=== PATIENT | male | born 1985 | race Caucasian/White ===

== ENCOUNTER 2016-07-11 15:23 | Emergency (ER) | payer SELFPAY ==
[~2016-07-11] VITALS: Ht 177.8 cm; Wt 105.0 kg
[2016-07-11 15:43] VITALS: Ht 177.8 cm; Wt 105.0 kg
[2016-07-11] MEDS ORDERED: IBUP-1542 PO (17:58)
[2016-07-11] MEDS ORDERED: CIPR500T4 PO (17:58)
[2016-07-11] MEDS ORDERED: DIPHTH/TET/ACEL PERTUSS (ADULT) 0.5 ML VIAL IM* ONE (18:00)
--- NOTE | 2016-07-11 18:10 | ERD ---
ER Documentation Chief Complaint Date/Time DATE: 07/11/16 TIME: 18:06 Chief Complaint Pt with nail puncture to R foot. No tetanus shot within 5 years. HPI Patient is a 31-year-old male presents to the ED with right foot nail puncture wound today. He states that he stepped on a clean nail and it went through his tennis shoes and into his foot. He states that he removed the nail. Denies any bleeding. Denies fever or chills. Denies drainage. States that he has not received his tetanus shot in the last 10 years. Denies chest pain, cough, shortness of breath or difficulty breathing. Denies leg pain or swelling. ROS All systems reviewed and are negative except as per history of present illness. Medications Home Meds Active Scripts Ibuprofen* (Motrin*) 600 Mg Tab, 600 MG PO Q6H Y for PAIN AND OR ELEVATED TEMP, #30 TAB Prov:WIL LEZAMA PA-C 07/11/16 Ciprofloxacin Hcl* (Ciprofloxacin Hcl*) 500 Mg Tablet, 500 MG PO BID for 10 Days , TAB Prov:WIL LEZAMA PA-C 07/11/16 PMhx/Soc History of Surgery: No Anesthesia Reaction: No Hx Neurological Disorder: No Hx Respiratory Disorders: No Hx Cardiac Disorders: No Hx Psychiatric Problems: No Hx Miscellaneous Medical Probl: No Hx Alcohol Use: No Hx Substance Use: No Hx Tobacco Use: No Smoking Status: Never smoker FmHx Family History: No coronary disease, No diabetes, No other Physical Exam Vitals Vital Signs Date Time Temp Pulse Resp B/P Pulse Ox O2 Delivery O2 Flow Rate FiO2 07/11/16 15:43 97.6 72 20 143/80 99 Physical Exam GENERAL: Well-developed, well-nourished male. Appears in no acute distress. HEAD: Normocephalic, atraumatic. EYES: Pupils are equally reactive bilaterally. EOMs grossly intact. No conjunctival erythema. ENT: Moist mucous membranes. No uvula deviation. No kissing tonsils. No exudates. NECK: Supple. No lymphadenopathy or thyromegaly. No meningismus. negative kernig. negative brudinski. LUNG: Clear to auscultation bilaterally. No rhonchi, wheezing, rales or coarse breath sounds. HEART: Regular rate and rhythm. No murmurs, rubs or gallops. Extremities: Equal pulses bilaterally. No peripheral clubbing, cyanosis or edema. No unilateral leg swelling. Small wound to the bottom of the right foot. No surrounding erythema or swelling. No bleeding. NEUROLOGIC: Alert and oriented. Moving all four extremities. 5/5 strength in all extremities. Normal speech. Steady gait. SKIN: Normal color. Warm and dry. No rashes or lesions. Capillary refill < 2 seconds Results 24 hrs Current Medications Medications (Trade) Dose Ordered Sig/Dawna Route PRN Reason Start Time Stop Time Status Last Admin Dose Admin Diphtheria/ Tetanus/Acell Pertussis (Adacel) 0.5 ml ONCE ONCE IM* 07/11/16 18:00 07/11/16 18:01 DC Procedures/MDM ER COURSE: I kept the patient and/or family informed of laboratory and diagnostic imaging results throughout the emergency room course. MEDICAL DECISION MAKING: This is a 31-year-old male who presents with right nail puncture wound. Vital signs were reviewed. Patient is afebrile. Patient is not hypoxic. Patient is not toxic or ill-appearing. Patient was wearing a tennis shoe and I will be covering for Pseudomonas. Patient refused any x-ray or further wound clean. Low suspicion for necrotizing fasciitis, SJS, toxic epidermal necrolysis, Kawasaki, erythema multiforme, gangrene, scarlet fever, meningococcemia, sepsis , anaphylaxis, sepsis, deep space infection, or foreign body. Low suspicion for dislocation, fracture, septic joint, compartment syndrome, osteomyelitis, avascular necrosis, DVT, Achilles tendon rupture, cellulitis. At this time, unable to rule out any tendon and ligament injuries. Patient was given a tetanus shot here in the ED. DISCHARGE: At this time, patient is stable for discharge and outpatient management with no new complaints during the ER course. Patient was sent home with ciprofloxacin. Patient will be discharged home with instructions to recheck for new or worsening symptoms such as fever, nausea, weakness, LOC and to follow up with primary care in the next 1-2 days. Patient was advised to return to the ER for any new or worsening symptoms. Plan was discussed and patient and/or family understands and agrees. Home instructions were given. Departure Diagnosis: Primary Impression: Puncture wound Condition: Stable Patient Instructions: Puncture Wound, Foot Additional Instructions: Adryan al doctor SOLE mckenna zonia ADELIA PARA DENTRO DE 1-2 MONTESINOS.Dgale a la secretaria que nosotros le instruimos hacer esta adelia.Avise o llame si lomax condicin se empeora antes de la adelia. Regresa aqui si peor o no mejor. WIL LEZAMA PA-C Jul 11, 2016 18:10
[2016-07-11 18:47] VITALS: BP 105/68; PULSE 74; RESP 18
== END 2016-07-11 18:48 | disposition home or self-care (01) ==
LOC: FTE 15:23
DX: S91.331A Puncture wound without foreign body, right foot, initial encounter (principal); W45.0XXA Nail entering through skin, initial encounter; Y92.9 Unspecified place or not applicable; Z23 Encounter for immunization
CPT/HCPCS: 90471; 90715